=== PATIENT | male | born 1935 | race Caucasian/White ===

== ENCOUNTER 2020-08-25 15:09 | Emergency (ER) | payer MEDICARE, BC ==
[2020-08-25] MEDS ORDERED: Sodium Chloride 0.9% 10 ML Syringe FLUSH PRN (15:39)
[2020-08-25] MEDS ORDERED: Aspirin 81 MG Tab.Chew PO ONE (15:40)
--- NOTE | 2020-08-25 15:56 | EDM.PDOC ---
ED HPI GENERAL MEDICAL PROBLEM - General Chief Complaint: Cardiovascular Problem Stated Complaint: BLOOD PRESSURE Time Seen by Provider: 08/25/20 15:23 Source of Information: Reports: Patient - History of Present Illness INITIAL COMMENTS - FREE TEXT/NARRATIVE: Anmol is an 84 y/o male who presents to the ER requesting his BP to be checked, but then he also reports that today about 12 noon he ate some frozen pizza, then started to have dome left arm and shoulder pain that was quite sharp. He denies any diaphoresis, SOB, and exertional pain. He took his BP at home at that time himself and it was 198/140. He then took 2 Tylenol and laid down to rest a couple hours. When he got up the pain was better and he decided to come to the ER to be checked out. 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 He has been more tired and worn out lately. He did take his meds this AM as prescribed. - Related Data Allergies Allergy/AdvReac Type Severity Reaction Status Date / Time atorvastatin calcium Allergy Hives Verified 08/25/20 15:31 [From Lipitor] codeine Allergy Cannot Verified 08/25/20 15:31 Remember Home Meds: Home Meds Aspirin [Halfprin] 81 mg PO DAILY 10/30/13 [History] Cholecalciferol (Vitamin D3) [Vitamin D] 2,000 unit PO DAILY 10/30/13 [History] Lisinopril [Zestril] 20 mg PO DAILY 10/30/13 [History] Metoprolol Tartrate 25 mg PO BID 10/30/13 [History] Omega3/Dha/Epa/Fish Oil/Vit D3 [Fish Oil + Vitamin D-3 Softgel] 1 cap PO DAILY 10/30/13 [History] Pravastatin [Pravachol] 40 mg PO BEDTIME 10/30/13 [History] Ranitidine [Zantac] 150 mg PO BID PRN 10/30/13 [History] allopurinoL [Zyloprim] 200 mg PO DAILY 10/30/13 [History] amLODIPine [Norvasc] 10 mg PO DAILY 10/30/13 [History] Ferrous Sulfate 325 mg PO DAILY 02/09/18 [History] Nitroglycerin [Nitrostat] 0.4 mg SL ASDIRECTED PRN 02/09/18 [History] Past Medical History Cardiovascular History: Reports: Bypass (x5 at age 67), CAD, High Cholesterol, Hypertension, MA, PVD Gastrointestinal History: Reports: Hiatal Hernia, Other (See Below) Other Gastrointestinal History: umbilical hernia with obstruction, without gangrene Genitourinary History: Reports: Chronic Renal Insuffiency, Renal Disease, Other (See Below) Other Genitourinary History: atherosclerosis of renal artery Musculoskeletal History: Reports: Gout Neurological History: Reports: Other (See Below) Other Neuro History: carotid artery disease Hematologic History: Reports: Anemia - Past Surgical History Cardiovascular Surgical History: Reports: Coronary Artery Bypass, Other (See Below) Other Cardiovascular Surgeries/Procedures: thromboendarterectomy GI Surgical History: Reports: Hernia, Inguinal Male Surgical History: Reports: Other (See Below) Other Male Surgeries/Procedures: orchiectomy smpl WWO prosthesis scrotal inguinal apprch. exc hydrocele unilat Musculoskeletal Surgical History: Reports: Other (See Below) Other Musculoskeletal Surgeries/Procedures:: foot surgery Social & Family History - Tobacco Use Tobacco Use Status *Q: Never Tobacco User ED ROS GENERAL - Review of Systems Review Of Systems: See Below Constitutional: Reports: Fatigue HEENT: Reports: No Symptoms Respiratory: Reports: No Symptoms Cardiovascular: Reports: Other (Left arm and shoulder pain) Endocrine: Reports: Fatigue GI/Abdominal: Reports: No Symptoms : Reports: No Symptoms Musculoskeletal: Reports: No Symptoms Skin: Reports: No Symptoms Neurological: Reports: No Symptoms Psychiatric: Reports: No Symptoms Hematologic/Lymphatic: Reports: No Symptoms Immunologic: Reports: No Symptoms ED EXAM, GENERAL - Physical Exam Exam: See Below General Appearance: Alert, WD/WN (Elderly male.) Eye Exam: Bilateral Eye: PERRL Ears: Normal External Exam, Normal Canal, Hearing Grossly Normal, Normal TMs Nose: Normal Inspection, Normal Mucosa Throat/Mouth: Normal Inspection, Normal Lips, Normal Teeth, No Airway Compromise Head: Atraumatic, Normocephalic Neck: Normal Inspection, Supple, Other (Note bilateral surgical scars on neck, well healed.) Respiratory/Chest: No Respiratory Distress, Lungs Clear, Normal Breath Sounds, Chest Non-Tender Cardiovascular: Normal Peripheral Pulses, Regular Rate, Rhythm, No Edema, No Murmur GI/Abdominal: Normal Bowel Sounds, Soft, Non-Tender (Male) Exam: Deferred Rectal (Males) Exam: Deferred Back Exam: Normal Inspection Extremities: Normal Inspection, Normal Range of Motion, No Pedal Edema, Normal Capillary Refill Neurological: Alert, Oriented, CN II-XII Intact, Normal Cognition, No Motor/Sensory Deficits Psychiatric: Normal Affect, Normal Mood Skin Exam: Warm, Dry, Intact, Normal Color Lymphatic: No Adenopathy Course - Vital Signs Text/Narrative:: 1523 The patient was seen by the [facility] PHOTOGRAPHER. Labs, CXR, and EKG ordered. He was given ASA 324mg po. 1615 Remains pain free. Labs reviewed. Troponin=<0.017, CBC and CMP neg. Remains pain free. Advised patient of need for a serial troponin level in 3 hours, he agrees to stay. Will monitor until 1900 then repeat Troponin. 0 Repeat Troponin negative and no further chest pain sx. Patient given discharge instructions and left the ER in stable condition. Last Recorded V/S: Last Vital Signs Temp 36.7 C 08/25/20 15:15 Pulse 67 08/25/20 17:35 Resp 16 08/25/20 17:35 BP 146/81 H 08/25/20 17:35 Pulse Ox 97 08/25/20 17:35 - Orders/Labs/Meds Orders: Active Orders 24 hr Category Date Time Status EKG Documentation Completion [RC] STAT Care 08/25/20 15:39 Active Sodium Chloride 0.9% [Saline Flush] Med 08/25/20 15:39 Active 10 ml FLUSH ASDIRECTED PRN Saline Lock Insert [OM.PC] Stat Oth 08/25/20 15:39 Ordered Medication Orders Sodium Chloride (Saline Flush) 10 ml FLUSH ASDIRECTED PRN PRN Reason: Keep Vein Open Labs: Laboratory Tests 08/25/20 08/25/20 08/25/20 Range/Units 15:49 15:49 15:49 WBC 6.8 (4.0-10.0) x10^3/uL RBC 4.68 (4.5-6.0) x10^6/uL Hgb 15.9 D (14.0-18.0) g/dL Hct 45.8 (40.0-52.0) % MCV 97.9 H D (78.0-93.0) fL MCH 34.0 H (26.0-32.0) pg MCHC 34.7 (32.0-36.0) g/dL RDW Coeff of Hortencia 11.7 (10.0-15.0) % Plt Count 239 (130-400) x10^3/uL Add Manual Diff Yes Neutrophils % (Manual) 61 (50-80) % Band Neutrophils % 1 (0-6) % Lymphocytes % (Manual) 16 L (25-50) % Monocytes % (Manual) 18 H (2-11) % Eosinophils % (Manual) 4 (0-4) % Platelet Estimate Adequate PT 10.4 (9.9-12.5) SEC INR 0.9 L (2.0-3.5) APTT 25.4 L (25.6-32.8) SEC Sodium 142 (136-145) mmol/L Potassium 4.0 (3.5-5.1) mmol/L Chloride 102 (98-107) mmol/L Carbon Dioxide 30 (21-32) mmol/L Anion Gap 14.0 (5-15) mmol/L BUN 13 (7-18) mg/dL Creatinine 1.4 H (0.70-1.30) mg/dL Est Cr Clr Drug Dosing TNP Estimated GFR (MDRD) 49 Glucose 107 H (74-106) mg/dL Calcium 9.2 (8.5-10.1) mg/dL Corrected Calcium 9.36 (8.5-10.1) mg/dL Magnesium 2.2 (1.8-2.4) mg/dL Total Bilirubin 0.3 (0.2-1.0) mg/dL AST 13 L (15-37) U/L ALT 15 L (16-63) U/L Alkaline Phosphatase 46 (46-116) U/L Troponin I < 0.017 (<=0.056) ng/mL C-Reactive Protein 0.5 (<=0.9) mg/dL NT-Pro-B Natriuret Pep 696 H (<=450) pg/mL Total Protein 7.7 (6.4-8.2) g/dL Albumin 3.8 (3.4-5.0) g/dL Globulin 3.9 Albumin/Globulin Ratio 0.97 TSH, Ultra Sensitive 0.870 (0.358-3.74) uIU/mL 08/25/20 Range/Units 19:01 WBC (4.0-10.0) x10^3/uL RBC (4.5-6.0) x10^6/uL Hgb (14.0-18.0) g/dL Hct (40.0-52.0) % MCV (78.0-93.0) fL MCH (26.0-32.0) pg MCHC (32.0-36.0) g/dL RDW Coeff of Hortencia (10.0-15.0) % Plt Count (130-400) x10^3/uL Add Manual Diff Neutrophils % (Manual) (50-80) % Band Neutrophils % (0-6) % Lymphocytes % (Manual) (25-50) % Monocytes % (Manual) (2-11) % Eosinophils % (Manual) (0-4) % Platelet Estimate PT (9.9-12.5) SEC INR (2.0-3.5) APTT (25.6-32.8) SEC Sodium (136-145) mmol/L Potassium (3.5-5.1) mmol/L Chloride (98-107) mmol/L Carbon Dioxide (21-32) mmol/L Anion Gap (5-15) mmol/L BUN (7-18) mg/dL Creatinine (0.70-1.30) mg/dL Est Cr Clr Drug Dosing Estimated GFR (MDRD) Glucose (74-106) mg/dL Calcium (8.5-10.1) mg/dL Corrected Calcium (8.5-10.1) mg/dL Magnesium (1.8-2.4) mg/dL Total Bilirubin (0.2-1.0) mg/dL AST (15-37) U/L ALT (16-63) U/L Alkaline Phosphatase (46-116) U/L Troponin I < 0.017 (<=0.056) ng/mL C-Reactive Protein (<=0.9) mg/dL NT-Pro-B Natriuret Pep (<=450) pg/mL Total Protein (6.4-8.2) g/dL Albumin (3.4-5.0) g/dL Globulin Albumin/Globulin Ratio TSH, Ultra Sensitive (0.358-3.74) uIU/mL Meds: Medications Generic Name Dose Route Start Last Admin Trade Name Enma PRN Reason Stop Dose Admin Sodium Chloride 10 ml 08/25/20 15:39 Saline Flush FLUSH ASDIRECTED PRN Keep Vein Open Discontinued Medications Generic Name Dose Route Start Last Admin Trade Name Enma PRN Reason Stop Dose Admin Aspirin 324 mg 08/25/20 15:40 08/25/20 15:30 Aspirin PO 08/25/20 15:41 324 mg ONETIME ONE Administration - Radiology Interpretation Free Text/Narrative:: XR Chest 2V=no acute findings, large hiatal hernia noted with intrathoracic stomach (See final report) Departure - Departure Time of Disposition: 19:30 Disposition: Home, Self-Care 01 Condition: Good Clinical Impression: Hypertension Chest pain Qualifiers: Chest pain type: unspecified Qualified Code(s): R07.9 - Chest pain, unspecified Instructions: Nonspecific Chest Pain, Adult, Hypertension, Adult, [id number] Referrals: Rosie Vallejo MD [Primary Care Provider] - Forms: ED Department Discharge Additional Instructions: -Resume your prescriptions -Monitor for any further symptoms. -Follow up with your PCP as needed. -Return to the ER for any concerns. Sepsis Event Note (ED) - Evaluation Sepsis Screening Result: No Definite Risk - Focused Exam Vital Signs: Vital Signs Temp Pulse Resp BP Pulse Ox 08/25/20 17:35 67 16 146/81 H 97 08/25/20 16:02 68 14 146/91 H 96 08/25/20 15:15 36.7 C 69 16 166/83 H 97 - My Orders Last 24 Hours: My Active Orders 08/25/20 15:39 EKG Documentation Completion [RC] STAT Sodium Chloride 0.9% [Saline Flush] 10 ml FLUSH ASDIRECTED PRN Saline Lock Insert [OM.PC] Stat - Assessment/Plan Last 24 Hours: My Active Orders 08/25/20 15:39 EKG Documentation Completion [RC] STAT Sodium Chloride 0.9% [Saline Flush] 10 ml FLUSH ASDIRECTED PRN Saline Lock Insert [OM.PC] Stat
--- NOTE | 2020-08-25 16:03 | CR ---
[id number] RAD/RAD Chest PA And Lateral EXAM: RAD Chest PA And Lateral CLINICAL DATA: CHEST PAIN COMPARISON: CORRELATION IS MADE WITH JULY 21, 2009 FINDINGS: There is increased size of the hiatal hernia or intrathoracic stomach The cardiac silhouette is increased in size The lungs are clear IMPRESSION: LARGE HIATAL HERNIA OR INTRATHORACIC STOMACH Cong Ruiz MD 08/25/20 [id number] Thank you for allowing us to participate in the care of your patient.
[2020-08-25 16:10] LABS: PTT,PARTIAL THROMBOPLSTIN TIME 25.4 SEC (25.6-32.8)
[2020-08-25 16:24] LABS: CHLORIDE,CL 102 mmol/L (98-107); SODIUM,NA 142 mmol/L (136-145)
== END 2020-08-25 19:40 | disposition home or self-care (01) ==
LOC: VM.ED 15:09
DX: I12.9 Hypertensive chronic kidney disease with stage 1 through stage 4 chronic kidney disease, or unspecified chronic kidney disease (principal); N18.9 Chronic kidney disease, unspecified; I25.10 Atherosclerotic heart disease of native coronary artery without angina pectoris; E78.00 Pure hypercholesterolemia, unspecified; I25.2 Old myocardial infarction; M10.9 Gout, unspecified; Z88.8 Allergy status to other drugs, medicaments and biological substances; Z88.5 Allergy status to narcotic agent; Z79.82 Long term (current) use of aspirin; Z79.899 Other long term (current) drug therapy; Z95.1 Presence of aortocoronary bypass graft
CPT/HCPCS: 36415; 71046; 80053; 83735; 83880; 84443; 84484; 85025; 85610; 85730; 86140; 93005; 99284; 99285-25; A9270-GY

== ENCOUNTER 2022-01-18 09:06 | Emergency (ER) | payer MEDICARE, BC ==
[2022-01-18] MEDS ORDERED: Celecoxib 100 MG Cap PO ONE (09:33)
[2022-01-18 10:15] LABS: ANION GAP 12.6 mmol/L (5-15)
[2022-01-18] MEDS ORDERED: traMADol 50 MG Tab PO ONE (10:31)
[2022-01-18] MEDS ORDERED: traMADol 50 MG Tab PO PRN (10:57)
[2022-01-18] MEDS ORDERED: Take Home: traMADol 50 MG, 4 Tab Pack ONE (11:13)
== END 2022-01-18 11:19 | disposition home or self-care (01) ==
LOC: VM.ED 09:06
DX: S29.9XXA Unspecified injury of thorax, initial encounter (principal); W19.XXXA Unspecified fall, initial encounter
CPT/HCPCS: 36415; 71101; 80053; 81001; 85025; 99283; A9270

== ENCOUNTER 2022-01-21 02:44 | Observation (INO) | payer MEDICARE, BC ==
[2022-01-21] MEDS ORDERED: Sodium Chloride 0.9% 10 ML Syringe FLUSH PRN (02:54)
[2022-01-21 03:33] LABS: ANION GAP 13.7 mmol/L (5-15)
[2022-01-21] MEDS ORDERED: Metoclopramide 10 MG/2 ML SDV IVPUSH ONE (05:15)
[2022-01-21] MEDS ORDERED: Sodium Chloride 0.9% 1,000 ML IV ONE (05:15)
[2022-01-21] MEDS ORDERED: Nitroglycerin 0.4 MG Tab.SL SL PRN (08:48)
[2022-01-21] MEDS: Metoclopramide 10 MG/2 ML SDV IVPUSH SCH ×3 (11:56→23:45)
[2022-01-21] MEDS: Allopurinol 100 MG Tab PO SCH (11:57)
[2022-01-21] MEDS: Cholecalciferol (Vitamin D3) 25 MCG Tab PO SCH (11:59)
[2022-01-21] MEDS: Lisinopril 20 MG Tab PO SCH (12:00)
[2022-01-21] MEDS: Metoprolol Tartrate 25 MG Tab PO SCH ×2 (12:01→20:00)
[2022-01-21] MEDS: Aspirin 81 MG Tab.EC PO SCH (12:02)
[2022-01-21] MEDS: Citalopram 20 MG Tab PO SCH (12:05)
[2022-01-21] MEDS: Fish Oil/Omega-3 Fatty Acids 1 Gm Cap PO SCH (12:05)
[2022-01-21] MEDS: amLODIPine 10 MG Tab PO SCH ×2 (13:43→23:54)
[2022-01-21] MEDS: Sodium Chloride 0.9% 1,000 ML IV SCH (17:18)
[2022-01-21] MEDS ORDERED: Simvastatin 20 MG Tab PO SCH (21:00)
[2022-01-22] MEDS: Sodium Chloride 0.9% 1,000 ML IV SCH (03:16)
[2022-01-22] MEDS: Metoclopramide 10 MG/2 ML SDV IVPUSH SCH ×2 (05:10→11:30)
[2022-01-22 07:07] LABS: ANION GAP 13.1 mmol/L (5-15)
[2022-01-22] MEDS ORDERED: Bisacodyl 10 MG Supp RECTAL ONE (09:20)
[2022-01-22] MEDS ORDERED: Polyethylene Glycol 3350 Powder 17 GM Packet PO SCH (09:30)
[2022-01-22] MEDS: Lisinopril 20 MG Tab PO SCH (10:42)
[2022-01-22] MEDS: Allopurinol 100 MG Tab PO SCH (10:42)
[2022-01-22] MEDS: Cholecalciferol (Vitamin D3) 25 MCG Tab PO SCH (10:42)
[2022-01-22] MEDS: Metoprolol Tartrate 25 MG Tab PO SCH (10:45)
[2022-01-22] MEDS: Aspirin 81 MG Tab.EC PO SCH (10:45)
[2022-01-22] MEDS: Fish Oil/Omega-3 Fatty Acids 1 Gm Cap PO SCH (10:45)
[2022-01-22] MEDS: amLODIPine 10 MG Tab PO SCH (10:46)
[2022-01-22] MEDS: Citalopram 20 MG Tab PO SCH (10:46)
== END 2022-01-22 14:00 | disposition home or self-care (01) ==
LOC: VM.ED 02:44 → VM.MS 06:28
PROVIDERS: ADMIT Physician Assistant; ATTEND Physician Assistant
DX: K56.7 Ileus, unspecified (principal); K59.00 Constipation, unspecified; I25.10 Atherosclerotic heart disease of native coronary artery without angina pectoris; E78.00 Pure hypercholesterolemia, unspecified; I25.2 Old myocardial infarction; I12.9 Hypertensive chronic kidney disease with stage 1 through stage 4 chronic kidney disease, or unspecified chronic kidney disease; N18.9 Chronic kidney disease, unspecified; M10.9 Gout, unspecified; Z79.899 Other long term (current) drug therapy; Z88.5 Allergy status to narcotic agent; Z79.82 Long term (current) use of aspirin; Z98.890 Other specified postprocedural states
CPT/HCPCS: 36415; 74019; 80053; 82150; 83690; 83735; 85025; 85610; 85730; 86140; 96361; 96374; 96376; 99217; 99220; 99285-25; A9270-GY; G0378; J2765; J3490; J7030

== ENCOUNTER 2024-03-07 14:17 | Emergency (ER) | payer MEDICARE, BC | END 2024-03-07 15:05 | disposition home or self-care (01) | LOC: VM.ED 14:17 → SUPCPDRO 14:17 → VM.ED 15:05 | DX: I12.9 Hypertensive chronic kidney disease with stage 1 through stage 4 chronic kidney disease, or unspecified chronic kidney disease (principal); N18.9 Chronic kidney disease, unspecified; I25.2 Old myocardial infarction; I25.10 Atherosclerotic heart disease of native coronary artery without angina pectoris; E78.00 Pure hypercholesterolemia, unspecified; Z95.1 Presence of aortocoronary bypass graft; Z79.899 Other long term (current) drug therapy; Z79.82 Long term (current) use of aspirin; Z88.8 Allergy status to other drugs, medicaments and biological substances; Z88.5 Allergy status to narcotic agent | CPT/HCPCS: 99283; 99284 ==